=== PATIENT | female | born 1970 | race American Indian/Alaskan Native ===

== ENCOUNTER 2021-03-12 10:21 | Outpatient (CLI) | payer BC ==
--- NOTE | 2021-04-06 11:27 | Mammography Report ---
DIGITAL SCREENING MAMMOGRAM WITH CAD, 03/12/2021 CLINICAL INFORMATION / INDICATION: Routine screening mammography. SCREENING MAMMO TECHNIQUE: Digital bilateral 2D mammography was obtained in the craniocaudal and mediolateral obliqu e projections. This examination was interpreted with the benefit of Computer-Aided Detection analysis . COMPARISON: 09/27/2019 FINDINGS: Breast Density: There are scattered areas of fibroglandular density. No dominant mass, suspicious calcifications, or architectural distortion in either breast. Stable nodularity, most notably on the left in the upper outer quadrant. IMPRESSION: No mammographic evidence of malignancy. Follow up recommendation: Routine yearly BI-RADS Category 2: Benign. A "normal" or negative report should not discourage follow up or biopsy of a clinically significant f inding. A written summary of these findings will be mailed to the patient. The patient will be entered into a mammography reporting system which will generate a reminder letter for the patient's next appointmen t at the appropriate interval. The [employer] recommends yearly mammograms starting at age 40 and continuing as l hilda as a woman is in good health. Breast MRI is recommended for women with an approximate 20-25% or greater lifetime risk of breast cancer, including women with a strong family history of breast or ova sebastian cancer or who have been treated for Hodgkin's disease. Signer Name: Dennis Dale MD Signed: 04/06/2021 11:22 AM Workstation Name: [id number]
== END 2021-03-12 10:22 | disposition home or self-care (01) ==
LOC: SPVWC 10:21
PROVIDERS: ATTEND Internal Medicine
DX: Z12.31 Encounter for screening mammogram for malignant neoplasm of breast (principal)
CPT/HCPCS: 77067

== ENCOUNTER 2022-04-06 13:20 | Outpatient (CLI) | payer BC ==
--- NOTE | 2022-04-08 08:33 | Mammography Report ---
DIGITAL SCREENING MAMMOGRAM WITH CAD, 04/06/2022 CLINICAL INFORMATION / INDICATION: Routine screening mammography. TECHNIQUE: Digital bilateral 2D mammography was obtained in the craniocaudal and mediolateral obliqu e projections. This examination was interpreted with the benefit of Computer-Aided Detection analysis . COMPARISON: 03/12/2021, 10/09/2019, 09/27/2019 FINDINGS: Breast Density: The breasts are almost entirely fatty. No new dominant mass, suspicious calcifications, or architectural distortion in either breast. A previously seen posterior upper outer left breast mass is unchanged. Additional nodularity in the l eft breast is unchanged as well. IMPRESSION: No mammographic evidence of malignancy. Follow up recommendation: Routine yearly screening mammogram. BI-RADS Category 2: BENIGN. A "normal" or negative report should not discourage follow up or biopsy of a clinically significant f inding. A written summary of these findings will be mailed to the patient. The patient will be entered into a mammography reporting system which will generate a reminder letter for the patient's next appointmen t at the appropriate interval. The [employer] recommends yearly mammograms starting at age 40 and continuing as l hilda as a woman is in good health. Breast MRI is recommended for women with an approximate 20-25% or greater lifetime risk of breast cancer, including women with a strong family history of breast or ova sebastian cancer or who have been treated for Hodgkin's disease. Signer Name: Kalin Horn MD Signed: 04/08/2022 8:29 AM Workstation Name: [id number]
== END 2022-04-06 13:21 | disposition home or self-care (01) ==
LOC: SPVWC 13:20
PROVIDERS: ATTEND Internal Medicine
DX: Z12.31 Encounter for screening mammogram for malignant neoplasm of breast (principal)
CPT/HCPCS: 77067